=== PATIENT | female | born 1965 | race Two or more races ===

== ENCOUNTER 2020-02-11 21:58 | Emergency (ER) | payer OTHER ==
[~2020-02-11] VITALS: Ht 162.6 cm; Wt 79.4 kg
[~2020-02-11 21:58] MED LIST: MOTRIN800 MG PO
[2020-02-11] MEDS ORDERED: TOPROL XL50 M1 PO (22:28)
[2020-02-12] MEDS ORDERED: ZYNCOF 20-400120 ML PO (03:11)
== END 2020-02-12 03:23 | disposition home or self-care (01) ==
LOC: ER 21:58
DX: B34.9 Viral infection, unspecified (principal)

== ENCOUNTER 2020-05-30 08:29 | Emergency (ER) | payer OTHER ==
[~2020-05-30] VITALS: Ht 162.6 cm; Wt 77.1 kg
[~2020-05-30 08:29] MED LIST changes: +TOPROL XL50 M1 PO; +ZYNCOF 20-400120 ML PO
[2020-05-30] MEDS ORDERED: SYMBICORT 16010.2 GM IH (13:23)
== END 2020-05-30 13:30 | disposition home or self-care (01) ==
LOC: ER 08:29
DX: B34.9 Viral infection, unspecified (principal); R09.89 Other specified symptoms and signs involving the circulatory and respiratory systems

== ENCOUNTER 2022-03-25 07:11 | Inpatient (IN) | payer OTHER ==
[~2022-03-25] VITALS: Ht 162.6 cm; Wt 77.1 kg
[~2022-03-25 07:11] MED LIST changes: +SYMBICORT 16010.2 GM IH
[2022-03-25] MEDS ORDERED: COZAAR50 MG (07:22)
[2022-03-25] MEDS ORDERED: LEVOTHYROXINE25 MCG (07:22)
--- NOTE | 2022-03-25 07:27 | NUR ---
SE RECIBE PACIENTE ALERTA Y ORIENTADA X3 QUIEN REFIERE DOLOR ABDOMINAL EN CUADRANTE INFERIOR IZQ Y DIARREAS X3 JAMES.SE PRESENTA A CLAUDETTE DE EMERGENCIAS CON [place] RECTAL.SE MONITOREAN LOS SV Y SE UBICA EN OBSERVACION.
--- NOTE | 2022-03-25 09:12 | NUR ---
SE LE ORIENTA A PACIENTE SOBRE LAS ORDENES MEDICAS, REFIERE ENTEDER LAS MISMAS. SE CANALIZA Y SE LE COLOCA LOS IVF'S, SE LE SRIRAM LAS MUETRAS, SE LE ADMINISTRAN LOS MEDICAMENTOS Y SE NOTIFICA CT ABDOMNAL RONA LAS ORDENES MEDICAS.
== END 2022-03-29 13:11 | disposition home or self-care (01) | DRG 392 ==
LOC: ER 07:11 → MEDJ 19:01
PROVIDERS: ADMIT Internal Medicine; ATTEND Internal Medicine
PROC: BW21YZZ Computerized Tomography (CT Scan) of Abdomen and Pelvis using Other Contrast (ICD-10-PCS; principal; 2022-03-25)
DX: K52.89 Other specified noninfective gastroenteritis and colitis (principal); K92.2 Gastrointestinal hemorrhage, unspecified; I10 Essential (primary) hypertension; E03.9 Hypothyroidism, unspecified; G47.33 Obstructive sleep apnea (adult) (pediatric); Z20.822 Contact with and (suspected) exposure to COVID-19

== ENCOUNTER 2022-06-02 20:38 | Emergency (ER) | payer OTHER ==
[~2022-06-02] VITALS: Ht 167.6 cm; Wt 72.1 kg
[~2022-06-02 20:38] MED LIST changes: +COZAAR50 MG; +LEVOTHYROXINE25 MCG
== END 2022-06-02 23:18 | disposition home or self-care (01) ==
LOC: ER 20:38
DX: Z53.21 Procedure and treatment not carried out due to patient leaving prior to being seen by health care provider (principal)